=== PATIENT | female | born 1960 | race Caucasian/White ===

== ENCOUNTER 2017-12-18 22:01 | Inpatient (IN) ==
[2017-12-18] MEDS: OXYCODONE Oral CONC 10 MG/0.5 ML ORAL.SYG SL PRN (23:40)
[2017-12-18] MEDS: Ondansetron 4 MG/2 ML VIAL IVP PRN (23:41)
[2017-12-19] MEDS ORDERED: Naloxone 0.4 MG/ML INJ IVP PRN (01:04)
[2017-12-19] MEDS ORDERED: Dextrose Gel 15 GM/37.5 ML TUBE PO PRN ×2 (01:09)
[2017-12-19] MEDS ORDERED: *HR* Dextrose 50 % in Water (Syg) 50 ML SYRINGE IVP PRN ×2 (01:09→12:44)
[2017-12-19] MEDS ORDERED: D5% in Water 1,000 ML IVC PRN ×2 (01:09→12:44)
[2017-12-19] MEDS ORDERED: *HR* Metoprolol 5 MG/5 ML VIAL IVP PRN (01:24)
[2017-12-19] MEDS: Insulin LISPRO 300 UNITS/3 ML VIAL SQ SCH ×4 (02:00→20:16)
[2017-12-19] MEDS: levETIRAcetam 1,000 MG in 0.9 % Sodium Chloride 100 ML IVPB SCH ×2 (02:00→15:27)
[2017-12-19] MEDS: 0.9 % Sodium Chloride 1,000 ML IVC SCH ×2 (02:00→10:54)
[2017-12-19] MEDS: OXYCODONE Oral CONC 10 MG/0.5 ML ORAL.SYG SL PRN ×3 (03:41→10:51)
[2017-12-19 04:09] LABS: Basophils # 0.1 K/mcL (0.0-0.2); Basophils % 0.6 %; Eosinophils # 0.1 K/mcL (0.0-0.6); Eosinophils % 0.7 %; Hematocrit 43.1 % (35.3-44.9); Hemoglobin 14.7 g/dL (11.5-15.4); Immature Granulocytes % 0.3 % (0-4); Lymphocytes # 4.1 K/mcL (0.6-4.6); Lymphocytes % 42.1 %; Mean Corpuscular HGB Conc 34.1 g/dL (31.6-35.5); Mean Corpuscular Hemoglobin 30.7 pg (28.0-33.3); Mean Platelet Volume 12.4 fL (9.4-12.4); Monocytes # 0.8 K/mcL (0.0-1.3); Monocytes % 8.7 %; Neutrophils # 4.6 K/mcL (1.6-8.9); Platelet Count 267 K/mcL (140-400); Red Blood Count 4.79 M/mcL (3.82-4.97); Red Cell Distribution Width 13.5 % (11.5-14.5); Segmented Neutrophils % 47.6 %
[2017-12-19 04:25] LABS: BUN/Creatinine Ratio 24 (6-26); Blood Urea Nitrogen 18 mg/dL (6-20); Calcium 9.2 mg/dL (8.6-10.3); Carbon Dioxide 25 mEq/L (23-29); Chloride 102 mEq/L (98-107); Glucose 354 mg/dL (70-105); Osmolality,Calculated 298 (280-300); Potassium 4.7 mEq/L (3.5-5.1); Sodium 136 mEq/L (136-145); eGFR For African Americans > 60 (> 60); eGFR For Non-African Americans > 60 (> 60)
[2017-12-19] MEDS: Ondansetron 4 MG/2 ML VIAL IVP PRN (05:55)
[2017-12-19] MEDS: *HR* Enoxaparin 30 MG/0.3 ML SYRINGE SQ SCH (05:56)
--- NOTE | 2017-12-19 06:40 | Internal Med History&Physical ---
Date of Encounter: 12/18/17 Time of Encounter: 23:27 Internal Medicine - H&P: HPI Chief complaint: "Pancreatitis" Admitted From: Hospital to Hospital Transfer ([facility]) Plans for Post Hospital Care: Home History of present illness: Ms. Hernandez is a 57 year old female who I am asked to accept as transfer from [facility] ED. Patient presented to ED there for abdominal pain and "pancreatitis." Patient states that she has a history of chronic pancreatitis. She is S/P whipple procedure many years ago. ED physician Dr. Shukla wanted me to accept patient because she needed a higher level of care with a hospital with GI coverage. They do not have ground crew lines person there. Patient states that she has her pancreatitis "act up" several times a year and she needs to be admitted to hospital for a "tune up." She states pain is better with morphine she received in ED, but wants to know if she can get "dilaudid." I told her that IV pain medication is on shortage. We agreed to try oxycodone sublingual, as she takes oxycodone at home. We can escalate if it does not work. In my opinion, she does not look to be in any pain. She was walking around the room and going to bathroom prior to me entering the room. She denies nausea or vomiting at this time. No changes in bowels, constipation, or diarrhea. She denies fever or chills. She states that she has had some difficultly swallowing for last few months. She is agreeable to getting a swallow evaluation done by speech therapy. Past Med Surg Social Fam HX - Past Medical History Attestation: Yes The following information was validated with the patient. Medical history: atrial fibrillation, diabetes, hypertension Psychiatric history: anxiety, depression - Past Surgical History Surgical History: appendectomy, cholecystectomy, hysterectomy, splenectomy - Social History Smoking Status: Never smoker Smokeless Tobacco Status: No Alcohol use: none Drug use: none - Family History Mother Living Status: Hx Family Cardiac Disorders: Yes Father Living Status: Hx Family Cancer: Yes - Additional Family History Additional family history: Confirmed family history with patient. Internal Medicine - H&P: Meds Amitriptyline [Elavil] 25 mg PO HS 12/18/17 [History] DULoxetine [Cymbalta] 50 mg PO BID 12/18/17 [History] Gabapentin [Neurontin] 800 mg PO TID 12/18/17 [History] Insulin Glargine [Lantus] 100 unit HS 12/18/17 [History] Insulin LISPRO [HumaLOG] ACHS 12/18/17 [History] Lacosamide [Vimpat] PO BID 12/18/17 [History] LevETIRAcetam [Keppra] 1,000 mg PO BID 12/18/17 [History] Metoprolol [Lopressor] 12.5 mg PO BID 12/18/17 [History] Oxycodone HCl [Oxaydo] 5 mg PO 12/18/17 [History] Promethazine [Phenergan] 25 mg PO Q6HR PRN 12/18/17 [History] Tizanidine HCl [Zanaflex] Q6HR PRN 12/18/17 [History] 3 Allergy/AdvReac Type Severity Reaction Status Date / Time baclofen Allergy Vomiting Verified 12/18/17 22:48 codeine Allergy Vomiting Verified 12/18/17 22:48 latex Allergy Itching Verified 12/18/17 22:48 All Systems PM: A 10-system review of systems was performed and is negative for pertinent findings except as documented above in the HPI. - Constitutional Vitals: Temp Pulse Resp BP Pulse Ox 98.3 F 93 17 103/70 94 12/19/17 05:37 12/19/17 05:37 12/19/17 05:37 12/19/17 05:37 12/19/17 05:37 General appearance: Present: cooperative, A&O X 3, no acute distress, obese, answers questions appropriately - Head Head exam: Present: atraumatic, normal inspection, normocephalic - Eye Eye exam: Present: EOMI, normal appearance, PERRL. Absent: conjunctival injection, nystagmus, scleral icterus - ENT ENT exam: Present: mucous membranes moist, normal external ear exam, normal oropharynx - Neck Neck exam general surgery: Present: supple, trachea midline. Absent: lymphadenopathy, tenderness, thyromegaly - Respiratory Respiratory exam: Present: CTAB. Absent: accessory muscle use, rales, rhonchi, wheezes Additional comments: Normal WOB - Cardiovascular Cardiovascular exam: Present: RRR, +S1, +S2. Absent: diastolic murmur, gallop, rubs, systolic murmur Additional comments: No BLE edema - GI/Abdominal GI/Abdominal exam: Present: soft. Absent: distended, hepatomegaly, mass, splenomegaly Additional comments: Hypoactive bowel sounds, mild TTP diffusely across abdomen without rebound or guarding - Neurological Exam Neurological exam: Present: alert, CN II-XII intact, normal gait, oriented X3, no focal deficits, strengths equal and symetr throughout. Absent: altered, motor sensory deficit, facial droop, speech deficit - Psychiatric Psychiatric exam: Present: normal affect, normal mood. Absent: agitated, anxious, depressed - Skin Skin exam: Present: dry, intact, warm. Absent: cyanosis, rash Internal Med - H&P Results - Labs CBC & Chem 7: 12/19/17 01:50 12/19/17 01:50 Labs: Short CBC 12/19/17 Range/Units 01:50 WBC 9.7 (4.3-11.1) K/mcL Hgb 14.7 (11.5-15.4) g/dL Hct 43.1 (35.3-44.9) % Plt Count 267 (140-400) K/mcL Neutrophils # 4.6 (1.6-8.9) K/mcL BMP 12/19/17 01:50 Sodium 136 Potassium 4.7 Chloride 102 Carbon Dioxide 25 BUN 18 Creatinine 0.75 Glucose 354 H Calcium 9.2 - Impressions ITS Impressions Abdomen CT 12/19/17 13:00 IMPRESSION: 1. Mild retroperitoneal edema surrounding the remnant pancreatic head and uncinate process. Findings could be due to acute pancreatitis. 2. Status post distal pancreatectomy, splenectomy, and cholecystectomy. 3 nodules adjacent to the pancreatic head measuring up to 15 mm are stable from 04/23/2017. These could represent splenules or lymph nodes. 3. No additional acute abnormality in the abdomen on the noncontrast CT. D/ / Tremayne Truong MD / Tremayne Truong MD Interpreting Provider: Tremayne Truong MD - Assessment and plan (1) Acute on chronic pancreatitis Current Visit: Yes Status: Acute Assessment and plan: I personally reviewed all records from [facility]. Last CT abdomen in 2017. I want to repeat CT abdomen/pelvis to make sure there is no other pathology. NPO. IV NS at 125 ml/hr. Pain control with sublingual oxycodone. Consult GI in AM; appreciate their input. (2) Acute kidney injury Current Visit: Yes Status: Acute Assessment and plan: Start IV NS at 125 ml/hr. Recheck BMP in AM. (3) Dysphagia Current Visit: Yes Status: Acute Assessment and plan: NPO for pancreatitis as per above. ST consulted for speech evaluation. Consult GI in AM; appreciate input. Qualifiers: Dysphagia type: other dysphagia Qualified Code(s): R13.19 - Other dysphagia (4) Type 2 diabetes mellitus with hyperglycemia Current Visit: Yes Status: Acute Assessment and plan: Blood glucose in 600s at OSH. Got 10 units insulin there. Will start accuchecks and high dose SSI here. Will hold off on home lantus 100 units QHS due to NPO status. Qualifiers: Diabetes mellitus fpc insulin use: with fpc use Qualified Code( s): E11.65 - Type 2 diabetes mellitus with hyperglycemia; Z79.4 - long-term ( current) use of insulin (5) Intractable nausea and vomiting Current Visit: Yes Status: Resolved Assessment and plan: Resolved at this time. Will order PRN zofran 4 mg IV Q6H PRN nausea/vomiting. Qualifiers: Vomiting type: unspecified Qualified Code(s): R11.2 - Nausea with vomiting , unspecified (6) Seizure disorder Current Visit: Yes Status: Acute Assessment and plan: Since she is NPO, I will start IV keppra in place of home PO keppra. (7) HTN (hypertension) Current Visit: Yes Status: Acute Assessment and plan: Since she is NPO, I will add PRN IV lopressor for hypertension. Qualifiers: Hypertension type: essential hypertension Qualified Code(s): I10 - Essential (primary) hypertension (8) DVT prophylaxis Current Visit: Yes Status: Acute Assessment and plan: Start Lovenox 30 mg SQ QD. - Time Spent With Patient Total time spent is greater than 50% in coordination of care (as documented) at patient's floor/unit and/or counseling patient: less than 15 minutes
[2017-12-19 06:51] LABS: Basophils # 0.1 K/mcL (0.0-0.2); Basophils % 0.7 %; Eosinophils # 0.1 K/mcL (0.0-0.6); Eosinophils % 1.3 %; Hematocrit 42.9 % (35.3-44.9); Immature Granulocytes % 0.2 % (0-4); Lymphocytes # 4.3 K/mcL (0.6-4.6); Lymphocytes % 44.7 %; Mean Corpuscular HGB Conc 32.6 g/dL (31.6-35.5); Mean Corpuscular Hemoglobin 29.7 pg (28.0-33.3); Mean Corpuscular Volume 90.9 fL (83.0-100.0); Monocytes # 0.9 K/mcL (0.0-1.3); Neutrophils # 4.2 K/mcL (1.6-8.9); Platelet Count 277 K/mcL (140-400); Red Blood Count 4.72 M/mcL (3.82-4.97); Red Cell Distribution Width 13.7 % (11.5-14.5); Segmented Neutrophils % 44.1 %
[2017-12-19 07:09] LABS: BUN/Creatinine Ratio 27 (6-26); Blood Urea Nitrogen 18 mg/dL (6-20); Calcium 8.8 mg/dL (8.6-10.3); Carbon Dioxide 27 mEq/L (23-29); Chloride 105 mEq/L (98-107); Glucose 192 mg/dL (70-105); Osmolality,Calculated 293 (280-300); Potassium 3.9 mEq/L (3.5-5.1); Sodium 138 mEq/L (136-145); eGFR For African Americans > 60 (> 60); eGFR For Non-African Americans > 60 (> 60)
--- NOTE | 2017-12-19 12:41 | Internal Med Progress Note ---
Date of Encounter: 12/19/17 Time of Encounter: 12:20 - Assessment and plan (1) Acute on chronic pancreatitis Current Visit: Yes Status: Suspected Assessment and plan: Lipase was not checked. We will order amylase and lipase. There is some suggestion of inflammation around the remanent of her pancreas. Clinically she looks stable. Plan: NPO IVFs Check amylase and lipase (2) Acute kidney injury Current Visit: Yes Status: Resolved Assessment and plan: Normal kidney function (3) Dysphagia Current Visit: Yes Status: Acute Assessment and plan: Speech therapy following Qualifiers: Dysphagia type: other dysphagia Qualified Code(s): R13.19 - Other dysphagia (4) Type 2 diabetes mellitus with hyperglycemia Current Visit: Yes Status: Acute Assessment and plan: Increase Levemir dose, continue sliding scale Humalog in evidence of elevated glucose Qualifiers: Diabetes mellitus artificial limb fitter insulin use: with artificial limb fitter use Qualified Code( s): E11.65 - Type 2 diabetes mellitus with hyperglycemia; Z79.4 - clinical psychiatrist ( current) use of insulin (5) Intractable nausea and vomiting Current Visit: Yes Status: Resolved Qualifiers: Vomiting type: unspecified Qualified Code(s): R11.2 - Nausea with vomiting , unspecified (6) Seizure disorder Current Visit: Yes Status: Acute Assessment and plan: Resume home antiepileptic therapy (7) HTN (hypertension) Current Visit: Yes Status: Acute Assessment and plan: Since she is NPO, I will add PRN IV lopressor for hypertension. Qualifiers: Hypertension type: essential hypertension Qualified Code(s): I10 - Essential (primary) hypertension (8) DVT prophylaxis Current Visit: Yes Status: Acute Assessment and plan: Start Lovenox 30 mg SQ QD. - Time Spent With Patient Total time spent is greater than 50% in coordination of care (as documented) at patient's floor/unit and/or counseling patient: 25 - 35 minutes - Subjective Interval history: Patient was abdominal pain but was sleeping prior to my exam. No events noted overnight. - Constitutional Vitals: Temp Pulse Resp BP Pulse Ox 97.9 F 91 16 120/85 95 12/19/17 11:32 12/19/17 11:32 12/19/17 11:32 12/19/17 11:32 12/19/17 11:32 General appearance: Present: cooperative, A&O X 3, no acute distress, obese, answers questions appropriately Exam: Physical exam Gen: Comfortable, laying in bed, in no visible distress, morbid obesity HEENT: Normocephalic, atraumatic. No conjunctival icterus. Moist oral mucosa. Neck: Supple Lungs: Clear to auscultation, no foreign sounds Heart: Normal S1-S2, no murmurs rubs or gallops Abdomen: Normoactive bowel sounds, no guarding rigidity, reports epigastric tenderness Extremities: No edema clubbing or cyanosis Neuro: Alert oriented 3, no focal deficits Skin: No skin lesions Internal Medicine: Result - Labs CBC & Chem 7: 12/19/17 05:31 12/19/17 05:31 Labs: Short CBC 12/19/17 12/19/17 Range/Units 01:50 05:31 WBC 9.7 9.6 (4.3-11.1) K/mcL Hgb 14.7 14.0 (11.5-15.4) g/dL Hct 43.1 42.9 (35.3-44.9) % Plt Count 267 277 (140-400) K/mcL Neutrophils # 4.6 4.2 (1.6-8.9) K/mcL BMP 12/19/17 12/19/17 01:50 05:31 Sodium 136 138 Potassium 4.7 3.9 Chloride 102 105 Carbon Dioxide 25 27 BUN 18 18 Creatinine 0.75 0.67 Glucose 354 H 192 H Calcium 9.2 8.8 - Impressions Impressions Abdomen CT 12/19/17 13:00 IMPRESSION: 1. Mild retroperitoneal edema surrounding the remnant pancreatic head and uncinate process. Findings could be due to acute pancreatitis. 2. Status post distal pancreatectomy, splenectomy, and cholecystectomy. Three nodules adjacent to the pancreatic head measuring up to 15 mm are stable from 04/23/2017. These could represent splenules or lymph nodes. 3. No additional acute abnormality in the abdomen on the noncontrast CT. D/ / 12/19/2017 06:54:26 Tremayne Truong MD / [email or web address] Interpreting Provider: Tremayne Truong MD Consult Discharge Plan - Plan Referrals: Dm Mcqueen [Primary Care Provider] - Jena Saavedra [Family Provider] -
[2017-12-19] MEDS ORDERED: Insulin DETEMIR 100 UNIT/ML X5UNITS SQ SCH (12:45)
[2017-12-19] MEDS ORDERED: Ketorolac 15 MG/ML VIAL IVP PRN ×2 (12:47→16:02)
[2017-12-19 12:49] LABS: Estimated Average Glucose 324 mg/dl; Hemoglobin A1C 12.9 %
[2017-12-19] MEDS: Ringers Solution, Lactated 1,000 ML IVC SCH (15:27)
[2017-12-19] MEDS: Gabapentin 400 MG CAPSULE PO SCH ×2 (15:28→21:18)
[2017-12-19] MEDS: *HR* FentaNYL (PF) 100 MCG/2 ML VIAL IVP PRN ×2 (16:10→21:18)
[2017-12-19 16:41] LABS: Albumin 3.5 g/dL (3.5-5.7); Albumin/Globulin Ratio 1.2 (1.1-2.2); Bilirubin,Direct 0.1 mg/dL (0.0-0.2); Bilirubin,Indirect 0.7 mg/dL (0.0-1.2); Bilirubin,Total 0.8 mg/dL (0.3-1.0); Total Protein 6.5 g/dL (6.4-8.9)
[2017-12-19] MEDS ORDERED: NON-FORMULARY MEDICATION 1 EACH EACH (Levetiracetam [Keppra] 1,000 MG) PO SCH (21:00)
[2017-12-19] MEDS: Insulin DETEMIR 100 UNIT/ML X5UNITS SQ SCH (21:18)
[2017-12-20] MEDS: Insulin LISPRO 300 UNITS/3 ML VIAL SQ SCH ×4 (00:15→18:05)
[2017-12-20] MEDS: levETIRAcetam 1,000 MG in 0.9 % Sodium Chloride 100 ML IVPB SCH ×2 (01:34→15:24)
[2017-12-20] MEDS: Ringers Solution, Lactated 1,000 ML IVC SCH ×2 (01:35→12:10)
[2017-12-20] MEDS: *HR* FentaNYL (PF) 100 MCG/2 ML VIAL IVP PRN ×4 (03:39→21:36)
[2017-12-20 05:38] LABS: Basophils # 0.1 K/mcL (0.0-0.2); Basophils % 0.9 %; Eosinophils # 0.2 K/mcL (0.0-0.6); Eosinophils % 1.9 %; Hemoglobin 14.3 g/dL (11.5-15.4); Immature Granulocytes % 0.7 % (0-4); Lymphocytes # 3.9 K/mcL (0.6-4.6); Lymphocytes % 38.7 %; Mean Corpuscular Hemoglobin 31.2 pg (28.0-33.3); Mean Corpuscular Volume 91.5 fL (83.0-100.0); Mean Platelet Volume 11.3 fL (9.4-12.4); Monocytes # 0.7 K/mcL (0.0-1.3); Neutrophils # 5.2 K/mcL (1.6-8.9); Platelet Count 252 K/mcL (140-400); Red Blood Count 4.59 M/mcL (3.82-4.97); Red Cell Distribution Width 13.3 % (11.5-14.5); Segmented Neutrophils % 50.8 %
[2017-12-20] MEDS: *HR* Enoxaparin 30 MG/0.3 ML SYRINGE SQ SCH (05:56)
[2017-12-20 09:24] LABS: BUN/Creatinine Ratio 23 (6-26); Blood Urea Nitrogen 13 mg/dL (6-20); Calcium 8.5 mg/dL (8.6-10.3); Carbon Dioxide 29 mEq/L (23-29); Chloride 102 mEq/L (98-107); Glucose 166 mg/dL (70-105); Osmolality,Calculated 290 (280-300); Potassium 3.7 mEq/L (3.5-5.1); Sodium 138 mEq/L (136-145); eGFR For African Americans > 60 (> 60); eGFR For Non-African Americans > 60 (> 60)
[2017-12-20] MEDS: Gabapentin 400 MG CAPSULE PO SCH ×3 (09:24→21:22)
--- NOTE | 2017-12-20 13:06 | Gastroenterology Consult Note ---
<Chelsea Galeana - Last Filed: 12/20/17 12:59> Date of Encounter: 12/20/17 Time of Encounter: 10:30 - Assessment and plan (1) Acute on chronic pancreatitis Current Visit: Yes Status: Suspected Assessment and plan: Pt states has been chronic for at least 22 years. She has a history of partial pancreatectomy. Amylase and lipase are normal, but LFTs are slightly elevated will order MRCP. Will check igg 4. (2) Dysphagia Current Visit: Yes Status: Acute Assessment and plan: Needs EGD and possible dilation. will hold lovenox and schedule for tomorrow. Qualifiers: Dysphagia type: other dysphagia Qualified Code(s): R13.19 - Other dysphagia - Time Spent With Patient Total time spent is greater than 50% in coordination of care (as documented) at patient's floor/unit and/or counseling patient: GI History of Present Illness - Data of Consult Patient: new to practice Consult date: 12/20/17 Requesting Physician: Hamzah Mejia - Consult Narrative Reason for consult: pancreatitis/dysphagia History of present illness: Ms. Hernandez is a 57 year old female with a pmhx of atrial fibrillation, diabetes, hypertension, anxiety, depression, chronic pancreatitits and she reports whipple procedure 20 years ago following ERCP. 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 Patient states that she has her pancreatitis "act up" several times a year and she needs to be admitted to hospital for a "tune up." She states pain is better with morphine she received in ED, but wants to know if she can get "dilaudid." She had nausea and vomiting, now just nausea. she denies diarrhea, constipation , bloody or tarry stools. She reports dysphagia for the past few months. Feeling as if food gets stuck in her throat, she has to keep drinking water to get it to go down, and sometimes the food will come back up. cT abdomen showed Mild retroperitoneal edema surrounding the remnant pancreatic head and uncinate process. Findings could be due to acute pancreatitis. Status post distal pancreatectomy, splenectomy, and cholecystectomy. Three nodules adjacent to the pancreatic head measuring up to 15 mm are stable from 04/23/2017. These could represent splenules or lymph nodes. No additional acute abnormality in the abdomen on the noncontrast CT. procedures:EGD/colonoscopy 2012 [place] NSAIDS: none Anticoagulants: Lovenox 0556 Past Med Surg Social Fam HX - Past Medical History Medical history: atrial fibrillation, diabetes, hypertension Psychiatric history: anxiety, depression - Past Surgical History Surgical History: appendectomy, cholecystectomy, hysterectomy, splenectomy - Social History Smoking Status: Never smoker Smokeless Tobacco Status: No Alcohol use: none Drug use: none - Family History Mother Living Status: Hx Family Cardiac Disorders: Yes Father Living Status: Hx Family Cancer: Yes Review of Systems: GI: as per [facility] GENERAL: denies fever, has some chills EYES: denies yellow discoloration ENT: denies pain with swallowing or difficulty swallowing CARDIO: denies chest pain, palpitations RESP: No Shortness of breath with exertion : denies change in color of urine NEURO: weakness HEME: Denies any bruising MS: denies joint pain, joint swelling or back pain. DERM: denies rash or itching PSYCH: history of anxiety and depression - Constitutional Vitals: Temp Pulse Resp BP Pulse Ox 97.6 F 83 16 145/82 95 12/20/17 11:12 12/20/17 11:12 12/20/17 11:12 12/20/17 11:12 12/20/17 11:12 Exam: CONSTITUTIONAL:~alert, no acute distress.~HEAD:~normocephalic.~EYES:~no jaundice.~NECK:~no obvious swelling.~HEART:~regular rate and rhythm, no murmurs. ~LUNGS:~bilateral good air entry.~ABDOMEN:~non distended, soft, very tender to the epigastric area, large abdominal scars well healed, no masses pulpable, no organomegaly.~RECTAL EXAM:~Deferred.~EXTREMITIES:~no clubbing, cyanosis or edema.~SKIN:~no stigmata of chronic liver disease.~NEUROLOGIC:~no obvious focal defect.~~~~ Results - Labs CBC & Chem 7: 12/20/17 05:23 12/20/17 08:51 Labs: Last Result Calcium 8.5 mg/dL (8.6-10.3) L 12/20/17 08:51 Triglycerides 146 mg/dL (< 150) 12/19/17 15:52 Entire Visit Hgb 14.3 g/dL (11.5-15.4) 12/20/17 05:23 Hct 42.0 % (35.3-44.9) 12/20/17 05:23 Total Bilirubin 0.8 mg/dL (0.3-1.0) 12/19/17 15:52 AST 80 Units/L (13-39) H 12/19/17 15:52 ALT 59 Units/L (7-52) H 12/19/17 15:52 Amylase 90 Units/L (29-103) 12/19/17 15:52 Lipase 31 Units/L (11-82) 12/19/17 15:52 Consult Discharge Plan - Plan Referrals: Dm Mcqueen [Primary Care Provider] - Jena Saavedra [Family Provider] - <Dasha Wong - Last Filed: 12/20/17 17:33> Date of Encounter: 12/20/17 Time of Encounter: 15:00 - Time Spent With Patient Total time spent is greater than 50% in coordination of care (as documented) at patient's floor/unit and/or counseling patient: GI History of Present Illness - Data of Consult Requesting Physician: Hamzah Mejia - Consult Narrative History of present illness: Ms. Hernandez is a 57 year old female - Constitutional Vitals: Temp Pulse Resp BP Pulse Ox 98.3 F 87 16 131/82 97 12/20/17 16:31 12/20/17 16:31 12/20/17 16:31 12/20/17 16:31 12/20/17 16:31 Results - Labs CBC & Chem 7: 12/20/17 05:23 12/20/17 08:51 Labs: Last Result Calcium 8.5 mg/dL (8.6-10.3) L 12/20/17 08:51 Triglycerides 146 mg/dL (< 150) 12/19/17 15:52 Entire Visit Hgb 14.3 g/dL (11.5-15.4) 12/20/17 05:23 Hct 42.0 % (35.3-44.9) 12/20/17 05:23 Total Bilirubin 0.8 mg/dL (0.3-1.0) 12/19/17 15:52 AST 80 Units/L (13-39) H 12/19/17 15:52 ALT 59 Units/L (7-52) H 12/19/17 15:52 Amylase 90 Units/L (29-103) 12/19/17 15:52 Lipase 31 Units/L (11-82) 12/19/17 15:52 - Impressions Impressions Abdomen MRI 12/20/17 10:50 IMPRESSION: 1. No acute findings in the abdomen. 2. Cholecystectomy, distal pancreatectomy, and splenectomy. 3. Suspected splenosis, including involvement adjacent to the right hemiliver. 4. Severe hepatic steatosis and mild hepatomegaly. D/ / Miguel Green MD / Miguel Green MD Interpreting Provider: Miguel Green MD - Attending Attestation I have personally performed a face to face evaluation on this patient. I have reviewed and agree with the care plan. History and Exam by me shows: Patient seen. Patient with a history of chronic pancreatitis admitted with recurrent flare. Also complaining of dysphagia up to the point that per patient she choked at home few time. Rec: IV fluid and pain control for pancreatitis. EGD to rule out esophageal causes for dysphagia and possible dilation
--- NOTE | 2017-12-20 14:54 | Internal Med Progress Note ---
Date of Encounter: 12/20/17 Time of Encounter: 14:52 - Assessment and plan (1) Acute on chronic pancreatitis Current Visit: Yes Status: Chronic Assessment and plan: Clinically improved appreciate computer engineer evaluation and follow-up MRCP was ordered is completed result not available yet (2) Dysphagia Current Visit: Yes Status: Acute Assessment and plan: EGD plan for tomorrow Qualifiers: Dysphagia type: other dysphagia Qualified Code(s): R13.19 - Other dysphagia (3) Type 2 diabetes mellitus with hyperglycemia Current Visit: Yes Status: Chronic Assessment and plan: Chronic continue his home medication and sliding scale Qualifiers: Diabetes mellitus senior living insulin use: with senior living use Qualified Code( s): E11.65 - Type 2 diabetes mellitus with hyperglycemia; Z79.4 - [facility] ( current) use of insulin (4) Intractable nausea and vomiting Current Visit: Yes Status: Resolved Assessment and plan: Clinically improved Qualifiers: Vomiting type: unspecified Qualified Code(s): R11.2 - Nausea with vomiting , unspecified (5) HTN (hypertension) Current Visit: Yes Status: Chronic Assessment and plan: Chronic and well controlled Qualifiers: Hypertension type: essential hypertension Qualified Code(s): I10 - Essential (primary) hypertension - Time Spent With Patient Total time spent is greater than 50% in coordination of care (as documented) at patient's floor/unit and/or counseling patient: - Subjective Interval history: Patient with history of the atrial fibrillation , obesity, diabetes, hypertension, depression, chronic pancreatitis for several years patient was admitted with the abdominal pain nausea vomiting amylase and lipase are normal patient also has some dysphasia has been seen by computer engineer and plan is for MRCP which is completely the results not available yet also plan for EGD tomorrow patient abdominal pain is now controlled at present - Constitutional Vitals: Temp Pulse Resp BP Pulse Ox 97.6 F 83 16 145/82 95 12/20/17 11:12 12/20/17 11:12 12/20/17 11:12 12/20/17 11:12 12/20/17 11:12 General appearance: Present: cooperative, A&O X 3, no acute distress, obese, answers questions appropriately - Head Head exam: Present: atraumatic, normocephalic - Eye Eye exam: Present: PERRL, conjuntiva pink, sclera anicteric Pupils: Present: PERRL - Neck Neck exam general surgery: Present: supple, trachea midline. Absent: lymphadenopathy - Respiratory Respiratory exam: Present: CTAB. Absent: accessory muscle use, rales, rhonchi, wheezes - Cardiovascular Cardiovascular exam: Present: RRR, +S1, +S2. Absent: diastolic murmur, gallop, rubs, systolic murmur - GI/Abdominal GI/Abdominal exam: Present: soft - Extremities Exam Extremities exam: Present: warm, radial pulses palpable and symmetrical. Absent : calf tenderness, cyanotic, pedal edema Internal Medicine: Result - Labs CBC & Chem 7: 12/20/17 05:23 12/20/17 08:51 Labs: Short CBC 12/20/17 Range/Units 05:23 WBC 10.2 (4.3-11.1) K/mcL Hgb 14.3 (11.5-15.4) g/dL Hct 42.0 (35.3-44.9) % Plt Count 252 (140-400) K/mcL Neutrophils # 5.2 (1.6-8.9) K/mcL BMP 12/20/17 08:51 Sodium 138 Potassium 3.7 Chloride 102 Carbon Dioxide 29 BUN 13 Creatinine 0.56 L Glucose 166 H Calcium 8.5 L Liver Function 12/19/17 Range/Units 15:52 Total Bilirubin 0.8 (0.3-1.0) mg/dL Direct Bilirubin 0.1 (0.0-0.2) mg/dL AST 80 H (13-39) Units/L ALT 59 H (7-52) Units/L Alkaline Phosphatase 113 H (34-104) Units/L Albumin 3.5 (3.5-5.7) g/dL - Impressions Impressions Abdomen MRI 12/20/17 10:50 IMPRESSION: 1. No acute findings in the abdomen. 2. Cholecystectomy, distal pancreatectomy, and splenectomy. 3. Suspected splenosis, including involvement adjacent to the right hemiliver. 4. Severe hepatic steatosis and mild hepatomegaly. D/ / Miguel Green MD / Miguel Green MD Interpreting Provider: Miguel Green MD Consult Discharge Plan - Plan Referrals: Dm Mcqueen [Primary Care Provider] - Jena Saavedra [Family Provider] -
[2017-12-20] MEDS: Insulin DETEMIR 100 UNIT/ML X5UNITS SQ SCH (21:23)
[2017-12-21] MEDS: Insulin LISPRO 300 UNITS/3 ML VIAL SQ SCH ×4 (00:47→17:48)
[2017-12-21] MEDS: Ringers Solution, Lactated 1,000 ML IVC SCH ×2 (00:48→11:18)
[2017-12-21] MEDS: levETIRAcetam 1,000 MG in 0.9 % Sodium Chloride 100 ML IVPB SCH ×2 (02:29→14:59)
[2017-12-21] MEDS: *HR* FentaNYL (PF) 100 MCG/2 ML VIAL IVP PRN ×4 (03:57→20:18)
[2017-12-21] MEDS: *HR* Enoxaparin 30 MG/0.3 ML SYRINGE SQ SCH (05:18)
[2017-12-21] MEDS: Gabapentin 400 MG CAPSULE PO SCH ×3 (09:01→20:16)
[2017-12-21] MEDS ORDERED: *HR* Propofol 200 MG/20 ML VIAL IVP ONE ×3 (12:55→13:10)
[2017-12-21] MEDS ORDERED: *HR* Metoprolol 5 MG/5 ML VIAL IVP ONE (13:01)
[2017-12-21] MEDS ORDERED: Lidocaine -MPF 2% 2 ML VIAL ONE (13:10)
--- NOTE | 2017-12-21 13:16 | Anesthesia Evaluation PreOp ---
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, hysterectomy, appendectomy, lap cholecystectomy, partial pancreatectomy) : No Alcohol Use: none Drug use: none Medications and Allergies Amitriptyline [Elavil] 25 mg PO HS 12/18/17 [History] Gabapentin [Neurontin] 800 mg PO TID 12/18/17 [History] Insulin Glargine [Lantus] 50 unit SQ BID 12/18/17 [History] Lacosamide [Vimpat] 100 mg PO BID 12/18/17 [History] LevETIRAcetam [Keppra] 2,000 mg PO BID 12/18/17 [History] Metoprolol [Lopressor] 12.5 mg PO BID 12/18/17 [History] Oxycodone HCl [Oxaydo] 5 mg PO TID 12/18/17 [History] Promethazine [Phenergan] 25 mg PO Q6HR PRN 12/18/17 [History] Tizanidine HCl [Zanaflex] 4 mg PO Q6HR PRN 12/18/17 [History] Insulin ASPART [NovoLOG] 15 - 20 unit SQ TID PRN 12/19/17 [History] 3 Allergy/AdvReac Type Severity Reaction Status Date / Time latex Allergy Itching Verified 12/18/17 22:48 baclofen AdvReac Vomiting Verified 12/19/17 12:37 codeine AdvReac Vomiting Verified 12/19/17 12:37 - Meds/Allergy Pre-op Review Medications Reviewed: Yes Allergies Reviewed: Yes Beta Blockers on Current Med List: Yes If Beta Blockers taken, Date/Time (Last Dose taken): 12/18/17 evening Anesthesia Results - Labs 12/20/17 05:23 12/20/17 08:51 Anesthesia Exam Vital Signs Temperature 98.4 F 12/18/17 22:23 Pulse Rate 110 12/18/17 22:23 Respiratory Rate 18 12/18/17 22:23 Blood Pressure 131/86 12/18/17 22:23 O2 Sat by Pulse Oximetry 96 12/18/17 22:23 Temperature 98.4 F 12/21/17 11:08 Pulse Rate 94 12/21/17 11:08 Respiratory Rate 14 12/21/17 11:08 Blood Pressure 150/84 12/21/17 11:08 O2 Sat by Pulse Oximetry 98 12/21/17 11:08 Height: 5'3" Weight: 100.4kg NPO (# of Hours): 48+ hrs Pain Scale: 3 (pancreatic pain) Pain Scale Used: Numeric (1 - 10) - HEENT Pupil (Motor): Pupils equal Mallampati: II Teeth: Normal Oral Opening: Greater than 3 - DEVELOPMENT DIRECTOR LOC: Oriented DEVELOPMENT DIRECTOR Motor: Normal RUE, Normal LUE, Normal RLE, Normal LLE, Normal Face DEVELOPMENT DIRECTOR Sensory: Normal: RUE, LUE, RLE, LLE, Face - Cardiac Rhythm: Regular Murmur: None JVD: No Carotid Bruit: No - Pulmonary Breath Sounds: bilateral Clear Respiratory Effort: Symmetrical Anesthesia Assess/Plan ASA Score: 3 Modified Liyah Scale for Level of Consciousness: Cooperative, oriented, and tranquil Anesthetic Plan: MAC Autologous Blood: No Monitoring Plan: Standard Monitors Recovery Plan: Other
--- NOTE | 2017-12-21 13:52 | Internal Med Progress Note ---
Date of Encounter: 12/21/17 Time of Encounter: 12:00 - Assessment and plan (1) Acute on chronic pancreatitis Current Visit: Yes Status: Chronic Assessment and plan: Normal lipase levels Improving Reviewed CT of Abd showed acute pancreatitis MRI fo Abd - unremarkable Pt is seen by GI, scheduled for EGD today Will start her on diet after procedure (2) Acute kidney injury Current Visit: Yes Status: Resolved Assessment and plan: Normal kidney function (3) Dysphagia Current Visit: Yes Status: Acute Assessment and plan: EGD today Qualifiers: Dysphagia type: other dysphagia Qualified Code(s): R13.19 - Other dysphagia (4) Type 2 diabetes mellitus with hyperglycemia Current Visit: Yes Status: Chronic Assessment and plan: Sugars well controlled with current regimen ISS + Levemir Qualifiers: Diabetes mellitus parts counterman insulin use: with senior living use Qualified Code( s): E11.65 - Type 2 diabetes mellitus with hyperglycemia; Z79.4 - long-term ( current) use of insulin (5) Intractable nausea and vomiting Current Visit: Yes Status: Resolved Assessment and plan: Resolved at this time. Cont PRN zofran 4 mg IV Q6H PRN nausea/vomiting. Qualifiers: Vomiting type: unspecified Qualified Code(s): R11.2 - Nausea with vomiting , unspecified (6) Seizure disorder Current Visit: Yes Status: Acute Assessment and plan: Resume home antiepileptic therapy (7) HTN (hypertension) Current Visit: Yes Status: Chronic Assessment and plan: Resume home meds after procedure Qualifiers: Hypertension type: essential hypertension Qualified Code(s): I10 - Essential (primary) hypertension (8) DVT prophylaxis Current Visit: Yes Status: Acute Assessment and plan: On Lovenox 30 mg SQ QD. - Time Spent With Patient Total time spent is greater than 50% in coordination of care (as documented) at patient's floor/unit and/or counseling patient: - Subjective Interval history: Ms. Hernandez is a 57 year old female transferred from [facility] ED. Patient presented to ED there for abdominal pain and "pancreatitis." Patient states that she has a history of chronic pancreatitis. She is S/P whipple procedure many years ago. Pt was admitted here for acute on chronic pancreatitis. She is still c/o some abdominal discomfort and nausea. Scheduled for EGD today. - Constitutional Vitals: Temp Pulse Resp BP Pulse Ox 98.5 F 95 16 145/80 99 05/22/18 13:15 12/21/17 13:15 12/21/17 13:15 12/21/17 13:15 12/21/17 13:15 General appearance: Present: cooperative, A&O X 3, no acute distress, obese, answers questions appropriately - Head Head exam: Present: atraumatic, normal inspection - Neck Neck exam general surgery: Present: supple - Respiratory Respiratory exam: Present: decreased breath sounds. Absent: rales, respiratory distress, rhonchi, wheezes - Cardiovascular Cardiovascular exam: Present: RRR, +S1, +S2. Absent: tachycardia - GI/Abdominal GI/Abdominal exam: Present: normal bowel sounds, soft, tenderness (mild discomofrt remedios umbelically). Absent: rebound, rigid - Extremities Exam Extremities exam: Absent: calf tenderness, pedal edema, tenderness - Back Exam Back exam: Absent: CVA tenderness (L), CVA tenderness (R) - Psychiatric Psychiatric exam: Present: normal affect, normal mood Internal Medicine: Result - Labs CBC & Chem 7: 12/20/17 05:23 12/20/17 08:51 - Impressions Impressions Abdomen CT 12/19/17 13:00 IMPRESSION: 1. Mild retroperitoneal edema surrounding the remnant pancreatic head and uncinate process. Findings could be due to acute pancreatitis. 2. Status post distal pancreatectomy, splenectomy, and cholecystectomy. Three nodules adjacent to the pancreatic head measuring up to 15 mm are stable from 04/23/2017. These could represent splenules or lymph nodes. 3. No additional acute abnormality in the abdomen on the noncontrast CT. D/ / 12/19/2017 06:54:26 Tremayne Truong MD / kiel Interpreting Provider: Tremayne Truong MD Abdomen MRI 12/20/17 10:50 IMPRESSION: 1. No acute findings in the abdomen. 2. Cholecystectomy, distal pancreatectomy, and splenectomy. 3. Suspected splenosis, including involvement adjacent to the right hemiliver. 4. Severe hepatic steatosis and mild hepatomegaly. D/ / Miguel Green MD / Miguel Green MD Interpreting Provider: Miguel Green MD Consult Discharge Plan - Plan Referrals: Dm Mcqueen [Primary Care Provider] -
[2017-12-21] MEDS ORDERED: Tetracaine/Benzocaine/Butamben 200MG/SPRAY (100SPY/BOT) MM ONE (13:59)
--- NOTE | 2017-12-21 14:20 | Anesthesia Evaluation Post Op ---
Date of Encounter: 12/21/17 Time of Encounter: 14:18 - Vital Signs Vital Signs: Vital Signs Temperature 98.4 F 12/18/17 22:23 Pulse Rate 110 12/18/17 22:23 Respiratory Rate 18 12/18/17 22:23 Blood Pressure 131/86 12/18/17 22:23 O2 Sat by Pulse Oximetry 96 12/18/17 22:23 BP 174/82 P 82 R 17 spo2 95 - Lungs Lungs: Clear Ascult./Percussion - Airway Airway: Non-obstructed - Cardiovascular Regular Rate - Mental Status Mental Status: Alert & Oriented, Answers Appropriately - Pain Pain Scale: 3 Pain Scale used: Numeric (1 - 10) - Nausea Vomiting Nausea Vomiting: Not Present - Hydration Hydration: NPO, Has not voided - Discharge PostOp Status: Transfer Patient to floor
[2017-12-21] MEDS ORDERED: *HR* Promethazine 25 MG/ML VIAL ONE (14:23)
[2017-12-21] MEDS: Insulin DETEMIR 100 UNIT/ML X5UNITS SQ SCH (20:20)
[2017-12-22] MEDS: Ringers Solution, Lactated 1,000 ML IVC SCH ×3 (00:35→13:57)
[2017-12-22] MEDS: *HR* FentaNYL (PF) 100 MCG/2 ML VIAL IVP PRN ×5 (01:16→20:12)
[2017-12-22] MEDS: Insulin LISPRO 300 UNITS/3 ML VIAL SQ SCH ×4 (01:18→17:20)
[2017-12-22] MEDS: levETIRAcetam 1,000 MG in 0.9 % Sodium Chloride 100 ML IVPB SCH ×2 (01:18→13:57)
[2017-12-22] MEDS: *HR* Enoxaparin 30 MG/0.3 ML SYRINGE SQ SCH (05:30)
[2017-12-22] MEDS: Gabapentin 400 MG CAPSULE PO SCH ×3 (08:09→21:34)
[2017-12-22 08:58] LABS: Immunoglobulin G Subclass 1 416 mg/dL (240-1118); Immunoglobulin G Subclass 2 263 mg/dL (124-549); Immunoglobulin G Subclass 3 66 mg/dL (21-134); Immunoglobulin G Subclass 4 30 mg/dL (1-123)
[2017-12-22] MEDS: Sucralfate 1 GM TABLET PO SCH ×3 (12:53→21:34)
--- NOTE | 2017-12-22 16:30 | Internal Med Progress Note ---
Date of Encounter: 12/22/17 Time of Encounter: 11:00 - Assessment and plan (1) Acute on chronic pancreatitis Current Visit: Yes Status: Chronic Assessment and plan: Normal lipase levels Improving Reviewed CT of Abd showed acute pancreatitis MRI fo Abd - unremarkable Pt is seen by GI, had EGD placed her on soft diet today (2) Dysphagia Current Visit: Yes Status: Acute Assessment and plan: EGD showed esophagitis and non bleeding duodenal ulcers so started her on PPI BID and Carafate advanced the diet Qualifiers: Dysphagia type: other dysphagia Qualified Code(s): R13.19 - Other dysphagia (3) Duodenal ulcer Current Visit: Yes Status: Acute (4) Type 2 diabetes mellitus with hyperglycemia Current Visit: Yes Status: Chronic Assessment and plan: Sugars well controlled with current regimen ISS + Levemir Qualifiers: Diabetes mellitus [facility] insulin use: with termite control representative use Qualified Code( s): E11.65 - Type 2 diabetes mellitus with hyperglycemia; Z79.4 - intermediate designer ( current) use of insulin (5) Intractable nausea and vomiting Current Visit: Yes Status: Resolved Assessment and plan: Resolved at this time. Cont PRN zofran 4 mg IV Q6H PRN nausea/vomiting. Qualifiers: Vomiting type: unspecified Qualified Code(s): R11.2 - Nausea with vomiting , unspecified (6) Seizure disorder Current Visit: Yes Status: Acute Assessment and plan: Resume home antiepileptic therapy (7) HTN (hypertension) Current Visit: Yes Status: Chronic Assessment and plan: Resume home meds after procedure Qualifiers: Hypertension type: essential hypertension Qualified Code(s): I10 - Essential (primary) hypertension (8) DVT prophylaxis Current Visit: Yes Status: Acute Assessment and plan: On Lovenox 30 mg SQ QD. (9) Acute kidney injury Current Visit: Yes Status: Resolved Assessment and plan: No RICHIE noticed - Time Spent With Patient Total time spent is greater than 50% in coordination of care (as documented) at patient's floor/unit and/or counseling patient: - Subjective Interval history: Ms. Hernandez is a 57 year old female transferred from [facility]. Patient presented to ED there for abdominal pain and "pancreatitis." Patient states that she has a history of chronic pancreatitis. She is S/P whipple procedure many years ago. Pt was admitted here for acute on chronic pancreatitis. Had EGD on 12/21/17. Her abd pain is better today. Still has some nausea. No vomiting. Pt states she is still not ready to go home. - Constitutional Vitals: Temp Pulse Resp BP Pulse Ox 98 F 86 16 140/86 95 12/22/17 15:07 12/22/17 15:07 12/22/17 15:07 12/22/17 15:07 12/22/17 15:07 General appearance: Present: cooperative, A&O X 3, no acute distress, obese, answers questions appropriately - Head Head exam: Present: atraumatic, normal inspection - Neck Neck exam general surgery: Present: supple - Respiratory Respiratory exam: Present: decreased breath sounds. Absent: rales, respiratory distress, rhonchi, wheezes - Cardiovascular Cardiovascular exam: Present: RRR, +S1, +S2. Absent: tachycardia - GI/Abdominal GI/Abdominal exam: Present: normal bowel sounds, soft. Absent: rebound, rigid, tenderness - Extremities Exam Extremities exam: Absent: calf tenderness, pedal edema, tenderness - Back Exam Back exam: Absent: CVA tenderness (L), CVA tenderness (R) - Neurological Exam Neurological exam: Present: alert, oriented X3 - Psychiatric Psychiatric exam: Present: normal affect, normal mood Internal Medicine: Result - Labs CBC & Chem 7: 12/20/17 05:23 12/20/17 08:51 Consult Discharge Plan - Plan Referrals: Dm Mcqueen [Primary Care Provider] -
[2017-12-22] MEDS ORDERED: tiZANidine 4 MG TABLET PO PRN (16:32)
[2017-12-22] MEDS ORDERED: Insulin LISPRO 300 UNITS/3 ML VIAL SQ SCH (21:00)
[2017-12-22] MEDS: Insulin DETEMIR 100 UNIT/ML X5UNITS SQ SCH (21:35)
[2017-12-23] MEDS: levETIRAcetam 250 MG TABLET PO SCH ×2 (01:53→10:26)
[2017-12-23] MEDS: *HR* FentaNYL (PF) 100 MCG/2 ML VIAL IVP PRN ×4 (02:33→15:10)
[2017-12-23] MEDS: *HR* Enoxaparin 30 MG/0.3 ML SYRINGE SQ SCH (05:58)
[2017-12-23] MEDS: Gabapentin 400 MG CAPSULE PO SCH ×2 (10:17→15:10)
[2017-12-23] MEDS: Sucralfate 1 GM TABLET PO SCH ×2 (10:17→13:47)
[2017-12-23] MEDS: Insulin LISPRO 300 UNITS/3 ML VIAL SQ SCH ×3 (10:18→16:35)
--- NOTE | 2017-12-23 12:13 | Discharge Summary ---
Date of Encounter: 12/23/17 Time of Encounter: 12:10 - Discharge Diagnosis (1) Acute on chronic pancreatitis Priority: Primary Status: Chronic Assessment and Plan: 57 year old female with wiht pmh of chronic pancreatitis s/p whipple procedure presenting with abdominal pain. CT abdomen showed evidence of acute pancreatitis. She had an EGD done for dysphagia and had dilation performed with salmon colored mucosa biopsied for possible barretts esopahgus. EGD also showed multiple non bleeding duodenal ulcers. Her diet was advanced slowly and she was discharged in a stable condition. She will f/u outpatient with GI (2) Acute kidney injury Priority: Secondary Status: Resolved Assessment and Plan: No RICHIE noticed (3) Dysphagia Priority: Secondary Status: Acute Assessment and Plan: EGD showed esophagitis and non bleeding duodenal ulcers so started her on PPI BID and Carafate advanced the diet Qualifiers: Dysphagia type: other dysphagia Qualified Code(s): R13.19 - Other dysphagia (4) Type 2 diabetes mellitus with hyperglycemia Priority: Secondary Status: Chronic Assessment and Plan: Sugars well controlled with current regimen ISS + Levemir Qualifiers: Diabetes mellitus termite control service representative insulin use: with termite control service representative use Qualified Code( s): E11.65 - Type 2 diabetes mellitus with hyperglycemia; Z79.4 - residential ( current) use of insulin (5) Intractable nausea and vomiting Priority: Secondary Status: Resolved Assessment and Plan: Resolved at this time. Cont PRN zofran 4 mg IV Q6H PRN nausea/vomiting. Qualifiers: Vomiting type: unspecified Qualified Code(s): R11.2 - Nausea with vomiting , unspecified (6) Seizure disorder Priority: Secondary Status: Acute Assessment and Plan: Resume home antiepileptic therapy (7) HTN (hypertension) Priority: Secondary Status: Chronic Assessment and Plan: Resume home meds after procedure Qualifiers: Hypertension type: essential hypertension Qualified Code(s): I10 - Essential (primary) hypertension (8) DVT prophylaxis Priority: Secondary Status: Acute Assessment and Plan: On Lovenox 30 mg SQ QD. (9) Duodenal ulcer Priority: Secondary Status: Acute Hospital course: Ms. Hernandez is a 57 year old female Discharge discussed with: patient - Time Spent with Patient Total time spent providing and/or coordinating discharge services: - Discharge Medications Prescriptions: Oxycodone HCl 5 mg PO Q6HR PRN 14 Days #25 tablet PRN Reason: abdominal pain Sucralfate [Carafate] 1 gm PO QIDAC #60 tablet Home Medications: Amitriptyline [Elavil] 25 mg PO HS 12/18/17 [History] Gabapentin [Neurontin] 800 mg PO TID 12/18/17 [History] Insulin Glargine [Lantus] 50 unit SQ BID 12/18/17 [History] Lacosamide [Vimpat] 100 mg PO BID 12/18/17 [History] LevETIRAcetam [Keppra] 2,000 mg PO BID 12/18/17 [History] Metoprolol [Lopressor] 12.5 mg PO BID 12/18/17 [History] Oxycodone HCl [Oxaydo] 5 mg PO TID 12/18/17 [History] Promethazine [Phenergan] 25 mg PO Q6HR PRN 12/18/17 [History] Tizanidine HCl [Zanaflex] 4 mg PO Q6HR PRN 12/18/17 [History] Insulin ASPART [NovoLOG] 15 - 20 unit SQ TID PRN 12/19/17 [History] Oxycodone HCl 5 mg PO Q6HR PRN 14 Days #25 tablet 12/23/17 [Rx] Sucralfate [Carafate] 1 gm PO QIDAC #60 tablet 12/23/17 [Rx] Allergies/Adverse Reactions: 3 Allergy/AdvReac Type Severity Reaction Status Date / Time latex Allergy Itching Verified 12/18/17 22:48 baclofen AdvReac Vomiting Verified 12/19/17 12:37 codeine AdvReac Vomiting Verified 12/19/17 12:37 Date of admission: 12/19/17 01:04 Primary care physician: Dm Mcqueen Consults: 12/19/17 01:04 Consult for Pharmacy Education [CONS] Routine Reason for Consult: Lovenox Dose Call Completed: No 12/19/17 01:06 Consult to Gastroenterology [CONS] Stat Consulting Provider: Gastroenterology Brenda Reason for Consult: Acute on Chronic Pancreatitis, Dysphagia Call Completed: No Consult to Speech Therapy [CONS] Routine Comment: Evaluate, develop and implement POC Reason for Consult: Dysphagia Call Completed: No - Constitutional Vitals: Temp Pulse Resp BP Pulse Ox 98.9 F 86 16 135/86 96 12/23/17 08:04 12/23/17 08:04 12/23/17 08:04 12/23/17 08:04 12/23/17 08:04 General appearance: Present: cooperative, A&O X 3, no acute distress, obese, answers questions appropriately - Head Head exam: Present: atraumatic, normocephalic - Eye Eye exam: Present: PERRL, conjuntiva pink, sclera anicteric Pupils: Present: PERRL - Neck Neck exam general surgery: Present: supple, trachea midline. Absent: lymphadenopathy - Respiratory Respiratory exam: Present: CTAB. Absent: accessory muscle use, rales, rhonchi, wheezes - Cardiovascular Cardiovascular exam: Present: RRR, +S1, +S2. Absent: diastolic murmur, gallop, rubs, systolic murmur - GI/Abdominal GI/Abdominal exam: Present: normal bowel sounds, soft, no peritoneal signs. Absent: distended, tenderness - Extremities Exam Extremities exam: Present: warm, radial pulses palpable and symmetrical. Absent : calf tenderness, cyanotic, pedal edema - Neurological Exam Neurological exam: Present: CN II-XII intact, oriented X3, no focal deficits. Absent: pronater drift, facial droop, speech deficit - Skin Skin exam: Present: dry, intact - Patient Status Disposition: Home, Self-Care Condition: Good - Discharge Instructions
[2017-12-23 16:11] VITALS: BP 142/83
== END 2017-12-23 16:57 | disposition home or self-care (01) | DRG 439 ==
LOC: 3ANU
PROVIDERS: ADMIT Family Medicine; ATTEND Family Medicine